=== PATIENT | male | born 1945 ===

== ENCOUNTER 2017-01-20 13:42 | Emergency (ER) | payer MEDICARE, OTHER ==
[2017-01-20 13:55] VITALS: BP 134/86
--- NOTE | 2017-01-20 16:11 | UC ---
Lower Extremity/Ankle HPI - HPI Summary HPI Summary: 71 y/o male with h/o recent falling, being evaluated at home for ? parkinsons. Patient was out with friends and had a mechanical fall, denies lightheadness, dizzines, CORREA, head injury, injury to R ankle during fall, unsure how. occurred 2 days ago. + cut to L great toe, + R ankles swelling, pain, unable to bear weight on R ankle. h/o HTN, h/o R ankle fusion. - History of Current Complaint Chief Complaint: UCLowerExtremity Stated Complaint: LEG INJURY Time Seen by Provider: 01/20/17 15:54 Hx Obtained From: Patient, Family/Estimator Lumber - friend whom he lives with in [place] Onset/Duration: Sudden Onset, Lasting Days - 2 days Severity Initially: Moderate Severity Currently: Moderate Aggravating Factor(s): Standing, Ambulation Alleviating Factor(s): Rest Able to Bear Weight: No - painful - Risk Factors Gout Risk Factors: Age Over 40, Diabetes DVT Risk Factors: Recent Travel, Recent Period Of Bedrest - Allergies/Home Medications Allergies/Adverse Reactions: Allergies Allergy/AdvReac Type Severity Reaction Status Date / Time No Known Allergies Allergy Verified 01/20/17 13:55 Home Medications: Home Medications Allopurinol TAB* [Zyloprim 100 MG TAB*] 100 mg PO DAILY 01/20/17 [History Confirmed 01/20/17] Aripiprazole 20 mg PO 01/20/17 [History] Divalproex Sodium [Divalproex Sodium ER] 500 mg PO BID 01/20/17 [History Confirmed 01/20/17] Dorzolamide/Timolol OPTH (NF) [Cosopt (NF)] 1 drop BOTH EYES BID 01/20/17 [ History Confirmed 01/20/17] Lisinopril [Zestril 10 MG-] 10 mg PO DAILY 01/20/17 [History Confirmed 01/20/17] Naproxen [Naprosyn 500 mg] 500 mg PO BID PRN 01/20/17 [History Confirmed ] Simvastatin [Zocor 40 MG (NF)] 40 mg PO QPM 01/20/17 [History Confirmed 01/20/17 ] metFORMIN* [Glucophage 1000 MG TAB *] 1,000 mg PO 0800,1700 01/20/17 [History Confirmed 01/20/17] PMH/Surg Hx/FS Hx/Imm Hx - Additional Past Medical History Additional PMH: DM II Endocrine History: Diabetes - Surgical History Surgical History: None - Social History Alcohol Use: Occasionally Substance Use Type: None Smoking Status (MU): Never Smoked Tobacco Review of Systems Motor: Decreased ROM, Weakness Musculoskeletal: Arthralgia, Edema, Myalgia Neurological: Weakness Psychological: Negative All Other Systems Reviewed And Are Negative: Yes Physical Exam Triage Information Reviewed: Yes Appearance: Well-Appearing, No Pain Distress, Well-Nourished Vital Signs: Initial Vital Signs Temp 98.4 F 01/20/17 13:48 Pulse 118 01/20/17 13:48 Resp 18 01/20/17 13:48 BP 134/86 01/20/17 13:48 Pulse Ox 98 01/20/17 13:48 Vital Signs Reviewed: Yes Musculoskeletal: Positive: Strength Limited @ - decreased pain with R ankle add , abd, no DF/pF + tenderness over L great toe., ROM Limited @ - decreased R ankle due to fusion., Edema @ - b/l LEs, Other: - superfical skin tear healing, steri strip placed over flap to adhere in place, skin tear ~ 1.5 cm, not full thickness. Neurological Exam: Normal Psychological Exam: Normal Skin: Positive: Other - erythema b/l LE around ankles, R>L. Small superficial skin flap over bottome great L toe, + bleeding controlled with pressure. pitting edema b/l 2+. + warm LEs Lower Extremity Course/Dx - Course Course Of Treatment: radiograph negative for fracture. Keflex given for possible cellulitis with increased swelling, erythema and open wound in a DM. Patient continue to be weight bearing as tolerated. FOllow up with ortho at home. - Differential Dx/Diagnosis Differential Diagnosis/HQI/PQRI: Burn, Cellulitis, Infection, Sprain, Strain Provider Diagnoses: ankle sprain, cellulitis Discharge - Discharge Plan Condition: Good Disposition: HOME Prescriptions: Cephalexin CAP* [Keflex CAP*] 500 mg PO TID #30 cap Patient Education Materials: Ankle Sprain (ED), Cellulitis (ED) Forms: *Gen. Provider Communication Additional Instructions: - Follow up with primary within 2-3 days after arrival back home - antibiotics as directed - return to ER with fever, chills, increased pain - Weight bearing as tolerated - post-op shoe for comfort
--- NOTE | 2017-01-20 16:45 | RAD ---
INDICATION: Right ankle pain COMPARISON: None TECHNIQUE: AP, lateral, and oblique views were obtained. FINDINGS: There is advanced arthritic change but the tibiotalar joint with cortical irregularities of the talus with collapse. There is joint space narrowing. There is also significant subtalar osteoarthritis. There is degenerative change of the midfoot and there are heel spurs. IMPRESSION: ADVANCED OSTEOARTHRITIS. NO ACUTE FINDINGS
--- NOTE | 2017-01-20 16:46 | RAD ---
INDICATION: Right foot pain COMPARISON: None TECHNIQUE: AP, lateral, and oblique views were obtained. FINDINGS: There is osteopenia. There is degenerative change of the dorsal midfoot. There is moderate to advanced osteoarthritis about the first MTP joint with hallux valgus deformity. There is advanced osteophyte change about the tibiotalar joint and the subtalar joint with sclerosis and bony hypertrophy. There are heel spurs. IMPRESSION: ADVANCED OSTEOARTHRITIS. NO ACUTE FINDINGS.
== END 2017-01-20 17:29 | disposition home or self-care (01) ==
LOC: UCEAST 13:42
DX: S93.401A Sprain of unspecified ligament of right ankle, initial encounter (principal); W18.30XA Fall on same level, unspecified, initial encounter; Y93.9 Activity, unspecified; Y92.9 Unspecified place or not applicable; E11.8 Type 2 diabetes mellitus with unspecified complications; Z79.84 Long term (current) use of oral hypoglycemic drugs; I10 Essential (primary) hypertension; Z98.1 Arthrodesis status; Y99.9 Unspecified external cause status; L03.115 Cellulitis of right lower limb
CPT/HCPCS: 99213; G0463